=== PATIENT | female | born 1955 | race Caucasian/White ===

== ENCOUNTER 2024-02-15 11:24 | Emergency (ER) | payer MEDICARE, OTHER ==
[~2024-02-15] VITALS: Ht 162.6 cm; Wt 59.5 kg
[~2024-02-15 11:24] MED LIST: ATELVIA35 MG PO; PLAQUENIL200 MG PO
[2024-02-15] MEDS ORDERED: SIMPONI AR50 MG/4 ML (11:47)
[2024-02-15] MEDS ORDERED: METHOTREXA25 MG/1 ML SC (11:47)
[2024-02-15] MEDS ORDERED: LISINOPRIL10 MG PO (11:47)
[2024-02-15] MEDS ORDERED: ATORVASTATIN CA20 MG PO (11:47)
[2024-02-15] MEDS: TETANUS/DIPHTHERIA TOX ADULT 0.5 ML SYR IM ONE (12:40)
[2024-02-15 13:13] VITALS: PULSE 66; RESP 16; TEMP 98.4; O2SAT 98
== END 2024-02-15 13:16 | disposition home or self-care (01) ==
LOC: FSED 11:38
DX: S82.091A Other fracture of right patella, initial encounter for closed fracture (principal); R20.0 Anesthesia of skin; W01.0XXA Fall on same level from slipping, tripping and stumbling without subsequent striking against object, initial encounter; Y93.01 Activity, walking, marching and hiking; Y92.89 Other specified places as the place of occurrence of the external cause; I10 Essential (primary) hypertension; E78.5 Hyperlipidemia, unspecified; M06.9 Rheumatoid arthritis, unspecified
CPT/HCPCS: 90471; 90714; 96372; 99284